=== PATIENT | female | born 1945 ===

== ENCOUNTER 2021-05-02 07:14 | Outpatient (CLI) | payer OTHER | END 2021-05-02 23:59 | disposition home or self-care (01) | LOC: LAB 07:14 | PROVIDERS: ATTEND Internal Medicine | DX: Z01.812 Encounter for preprocedural laboratory examination (principal); Z20.822 Contact with and (suspected) exposure to COVID-19 ==

== ENCOUNTER 2021-05-03 06:21 | Day surgery (SDC) | payer OTHER ==
[2021-05-03] MEDS ORDERED: KETOROLAC 0.5% OPHT DROP 3 ML BOTTLE ONE (06:44)
[2021-05-03] MEDS ORDERED: PHENYLEPHRINE 2.5% OPHT DROP 2 ML BOTTLE ONE (06:45)
[2021-05-03] MEDS ORDERED: CIPROFLOXACIN 0.3% OPHT DROP 2.5 ML BOTTLE ONE (06:45)
[2021-05-03] MEDS ORDERED: TROPICAMIDE 1% OPHT DROP 3 ML BOTTLE ONE (06:45)
[2021-05-03] MEDS ORDERED: CYCLOPENTOLATE 1% OPHT DROP 2 ML BOTTLE ONE (07:14)
[2021-05-03] MEDS ORDERED: TIMOLOL MALEATE 0.5% OPHT DROP 5 ML BOTTLE ONE (07:19)
[2021-05-03] MEDS ORDERED: MOXIFLOXACIN HCL 3 ML OPHT DROPS ONE (07:19)
[2021-05-03] MEDS ORDERED: NEO/POLYMYX B/DEXAM OPHT DROP 5 ML BOTTLE ONE (07:19)
[2021-05-03] MEDS ORDERED: BALANCED SALT IRRIG SOLN COMB2 15 ML IRRIG.SOLN ONE (07:19)
[2021-05-03] MEDS ORDERED: LIDOCAINE-MPF 2% 5 ML VIAL ONE (07:19)
[2021-05-03] MEDS ORDERED: ACETYLCHOLINE CHLORIDE 1% OPHT 1 EA KIT ONE (07:20)
[2021-05-03] MEDS ORDERED: BALANCED SALT IRRIG SOLN COMB1 500 ML ONE (07:20)
[2021-05-03] MEDS ORDERED: BUPIVACAINE PF 0.5% 30 ML VIAL ONE (07:21)
[2021-05-03] MEDS ORDERED: HYALURONIDASE,OVINE 200 UNITS/ML VIAL ONE (07:21)
[2021-05-03] MEDS ORDERED: HYALURONATE SODIUM 12.8 MG/0.8 ML DISP.SYRIN ONE ×2 (07:21→07:31)
[2021-05-03] MEDS ORDERED: FENTANYL CITRATE 100 MCG/2 ML AMPUL ONE (07:23)
[2021-05-03] MEDS ORDERED: NEO/POLYMYX B/DEXAME OPHT OINT 3.5 GM TUBE ONE (07:37)
[2021-05-03] MEDS ORDERED: TRYPAN BLUE 0.5 ML DISP.SYRIN ONE (08:24)
[2021-05-03] MEDS ORDERED: BALANCED SALT IRRIG SOLN COMB1 500 ML, EPINEPHRINE-PF 1:1000 0.5 MG IO ONE (09:00)
[2021-05-03] MEDS ORDERED: ONDANSETRON 4 MG/2 ML VIAL ONE (09:26)
== END 2021-05-03 10:35 | disposition home or self-care (01) ==
LOC: DS 06:21
PROVIDERS: ATTEND Ophthalmology
DX: H25.89 Other age-related cataract (principal); I70.0 Atherosclerosis of aorta; I10 Essential (primary) hypertension; E78.00 Pure hypercholesterolemia, unspecified; M19.90 Unspecified osteoarthritis, unspecified site; J45.909 Unspecified asthma, uncomplicated; Z87.440 Personal history of urinary (tract) infections; Z79.899 Other long term (current) drug therapy; Z98.890 Other specified postprocedural states
CPT/HCPCS: 66984; 71045; J0171; J2405; J3010; J3471; J3490 ×2; J7120; J7321 ×2; Q9968; V2632; A4217; J3590